=== PATIENT | female | born 2000 | race Two or more races ===

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

== ENCOUNTER 2020-02-01 12:25 | Inpatient (IN) | payer MEDICAID, OTHER ==
[~2020-02-01] VITALS: Ht 157.5 cm; Wt 76.3 kg
[~2020-02-01 12:25] MED LIST: ESCI10TA61 PO
[2020-02-01 15:25] LABS: AMPHET/METH SCREEN,URINE NEGATIVE (NEGATIVE); BARBITURATE SCREEN, URINE NEGATIVE (NEGATIVE); BENZODIAZEPINES SCREEN,URINE NEGATIVE (NEGATIVE); CANNABINOID SCREEN,URINE POSITIVE (NEGATIVE); COCAINE SCREEN,URINE NEGATIVE (NEGATIVE); METHADONE SCREEN, URINE NEGATIVE (NEGATIVE); OPIATE SCREEN,URINE NEGATIVE (NEGATIVE)
[2020-02-01 15:27] LABS: PHENCYCLIDINE SCREEN,URINE NEGATIVE (NEGATIVE)
[2020-02-01 15:43] LABS: BASOPHILS % (AUTO) 0.5 % (0.0-2.0); EOSINOPHILS % (AUTO) 2.1 % (1.0-6.0); HEMATOCRIT 38.2 % (36-46); HEMOGLOBIN 12.8 g/dL (12.0-16.0); LYMPHOCYTES # (AUTO) 2.2 K/uL (1.0-4.8); LYMPHOCYTES % (AUTO) 28.4 % (22.0-44.0); MEAN CORPUSCULAR HGB CONC 33.6 G/dL (31.0-37.0); MEAN CORPUSCULAR VOLUME 86 fL (80-100); MONOCYTES # (AUTO) 0.3 K/uL (0.1-1.0); MONOCYTES % (AUTO) 4.5 % (2.0-9.0); NEUTROPHILS % (AUTO) 64.5 % (40.0-70.0); PLATELET COUNT (AUTO) 198 K/uL (150-450); RED BLOOD CELL COUNT(AUTO) 4.44 MIL/uL (4.00-5.20); RED CELL DISTRIBUTION WIDTH 14.3 % (11.5-14.5)
[2020-02-01 16:00] LABS: ANION GAP 9 mmol/L (8-16); CARBON DIOXIDE 27 mmol/L (22-29); CHLORIDE 103 mmol/L (98-107); CREATININE 0.83 mg/dL (0.60-1.30); GLOMERULAR FILTR. RATE CALC > 60 mL/min (>60); GLUCOSE,RANDOM 90 mg/dL (70-110); SODIUM SERUM 139 mmol/L (136-145); UREA NITROGEN, BLOOD 6 mg/dL (7-18)
[2020-02-01 16:06] LABS: ALANINE AMINOTRANSFERASE 15 U/L (12-78); ALKALINE PHOSPHATASE 82 U/L (46-116); ASPARTATE AMINOTRANSFERASE 17 U/L (15-37); BILIRUBIN,TOTAL 0.4 mg/dL (0.1-1.0); TOTAL PROTEIN, SERUM 7.8 g/dL (6.4-8.2)
[2020-02-01] MEDS ORDERED: HALOPERIDOL 5 MG TABLET PO PRN (18:30)
[2020-02-01 21:23] VITALS: BP 139/80
[2020-02-01] MEDS: LORazepam 2 MG TABLET PO PRN (22:21)
[2020-02-02 01:07] VITALS: BP 110/72
[2020-02-02] MEDS: ZOLPIDEM TARTRATE 10 MG TABLET PO PRN ×2 (01:56→21:53)
[2020-02-02 08:24] LABS: HEMOGLOBIN A1C 5.5 % (3.8-5.6)
[2020-02-02 08:42] LABS: CHOL/HDL RATIO 3.5 (3.9-5.7); FREE T4 (FREE THYROXINE) 1.36 ng/dL (0.76-1.46); THYROID STIMULATING HORMONE 1.42 uIU/mL (0.36-3.74)
[2020-02-02] MEDS: LORazepam 2 MG TABLET PO PRN ×3 (08:47→19:38)
[2020-02-02] MEDS: ESCITALOPRAM OXALATE 10 MG TABLET PO SCH (10:00)
[2020-02-02 10:56] VITALS: BP 128/69
[2020-02-02 16:27] VITALS: BP 127/78
[2020-02-02] MEDS ORDERED: ONDANSETRON HCL 4 MG TABLET PO PRN (18:15)
[2020-02-02] MEDS ORDERED: ALBUTEROL SULFATE HFA 90 MCG/PUFF 8 GM INHALER IH PRN (18:15)
[2020-02-02] MEDS ORDERED: GuaiFENesin/D-METHORPHAN [SUGAR-FREE] 200-20MG/10 ML SYRUP UDCUP PO PRN (18:15)
[2020-02-02] MEDS ORDERED: CloNIDine HCL 0.1 MG TABLET PO PRN (18:15)
[2020-02-02] MEDS ORDERED: PETROLATUM,WHITE 28 GM JELLY TP PRN (18:15)
[2020-02-02] MEDS ORDERED: IBUPROFEN 400 MG TABLET PO PRN (18:15)
[2020-02-02] MEDS ORDERED: LOPERAMIDE HCL 2 MG CAPSULE PO PRN (18:15)
[2020-02-02] MEDS ORDERED: DOCUSATE SODIUM 100 MG CAPSULE PO PRN (18:15)
[2020-02-02] MEDS ORDERED: ACETAMINOPHEN 325 MG TABLET PO PRN (18:15)
[2020-02-02] MEDS ORDERED: MAGNESIUM HYDROXIDE SUSPENSION 30 ML UDCUP PO PRN (18:15)
[2020-02-02] MEDS ORDERED: MAG HYDROX/AL HYDROX/SIMETH ES 30 ML SUSPENSION UDCUP PO PRN (18:15)
[2020-02-02] MEDS ORDERED: NICOTINE 14 MG/24 HOUR PATCH TD PRN (18:15)
[2020-02-03 05:15] VITALS: BP 111/66
[2020-02-03 08:19] LABS: ALANINE AMINOTRANSFERASE 17 U/L (12-78); ALBUMIN 4.2 g/dL (3.4-5.0); ALKALINE PHOSPHATASE 81 U/L (46-116); ANION GAP 11 mmol/L (8-16); ASPARTATE AMINOTRANSFERASE 19 U/L (15-37); BILIRUBIN,TOTAL 1.1 mg/dL (0.1-1.0); CALCIUM, TOTAL 9.3 mg/dL (8.8-10.5); CARBON DIOXIDE 27 mmol/L (22-29); CHLORIDE 105 mmol/L (98-107); CHOL/HDL RATIO 3.2 (3.9-5.7); CHOLESTEROL 142 mg/dL (131-200); CREATININE 0.76 mg/dL (0.60-1.30); GLOMERULAR FILTR. RATE CALC > 60 mL/min (>60); GLUCOSE,RANDOM 80 mg/dL (70-110); HDL CHOLESTEROL 44 mg/dL (40-60); LDL CHOL (CALC.) 90 mg/dL (0-130); POTASSIUM 3.9 mmol/L (3.5-5.1); SODIUM SERUM 143 mmol/L (136-145); TOTAL PROTEIN, SERUM 8.3 g/dL (6.4-8.2); TRIGLYCERIDES 39 mg/dL (15-150); UREA NITROGEN, BLOOD 10 mg/dL (7-18)
[2020-02-03] MEDS: ESCITALOPRAM OXALATE 10 MG TABLET PO SCH (08:21)
[2020-02-03] MEDS: LORazepam 2 MG TABLET PO PRN ×3 (08:21→20:05)
[2020-02-03 08:22] LABS: HEMOGLOBIN A1C 5.3 % (3.8-5.6)
[2020-02-03 08:28] VITALS: BP 113/73
[2020-02-03 20:10] VITALS: BP 108/67
[2020-02-03] MEDS: ZOLPIDEM TARTRATE 10 MG TABLET PO PRN (23:47)
[2020-02-04 03:19] VITALS: BP 107/78
[2020-02-04 08:35] VITALS: BP 113/67
[2020-02-04] MEDS: LORazepam 2 MG TABLET PO PRN (08:35)
[2020-02-04] MEDS ORDERED: ESCITALOPRAM OXALATE 10 MG TABLET PO SCH (09:00)
[2020-02-04] MEDS ORDERED: ESCI10TA PO (13:23)
== END 2020-02-04 14:30 | disposition home or self-care (01) | DRG 751 ==
LOC: EMS 12:28 → B2S 18:53
PROVIDERS: ADMIT Psychiatry & Neurology Psychiatry; ATTEND Psychiatry & Neurology Psychiatry
DX: F33.2 Major depressive disorder, recurrent severe without psychotic features (principal); R45.851 Suicidal ideations; Z79.899 Other long term (current) drug therapy; F41.9 Anxiety disorder, unspecified; R00.0 Tachycardia, unspecified; F10.10 Alcohol abuse, uncomplicated; Z71.41 Alcohol abuse counseling and surveillance of alcoholic
CPT/HCPCS: 83036; 84439; 84443; G0480; Q0162